=== PATIENT | male | born 1965 ===

== ENCOUNTER 2016-12-23 07:02 | Day surgery (SDC) | payer OTHER ==
[2016-12-23] MEDS ORDERED: Propofol 10 mg/ml Inj (20 ML) ONE (08:58)
[2016-12-23] MEDS ORDERED: Lactated Ringer's 500 ML IV ONE (09:00)
== END 2016-12-23 09:30 | disposition home or self-care (01) ==
LOC: H.ENDO 07:02
PROVIDERS: ATTEND Internal Medicine Gastroenterology
DX: R10.13 Epigastric pain (principal); I10 Essential (primary) hypertension; K64.8 Other hemorrhoids